=== PATIENT | female | born 1970 | race Two or more races ===

== ENCOUNTER 2023-02-21 21:19 | Emergency (ER) | payer OTHER ==
[~2023-02-21] VITALS: Ht 157.5 cm; Wt 62.0 kg
[2023-02-21 22:09] LABS: Urine Bacteria NONE SEEN /hpf (None Seen); Urine Blood Negative /uL (Negative); Urine Specific Gravity 1.009 (1.001-1.035); Urine WBC 2 /hpf (0 - 5)
[2023-02-21] MEDS ORDERED: MECLIZINE HCL 25 MG TAB PO ONE (23:45)
[2023-02-21] MEDS ORDERED: ONDA-144 PO (23:59)
[2023-02-21] MEDS ORDERED: MECL1TAB42 PO (23:59)
[2023-02-22 04:50] VITALS: BP 121/69
== END 2023-02-22 05:01 | disposition home or self-care (01) ==
LOC: ER 21:19
DX: R42 Dizziness and giddiness (principal)
CPT/HCPCS: 81001; 99283; J8597